=== PATIENT | male | born 1980 | race Caucasian/White ===

== ENCOUNTER 2024-12-10 08:49 | Emergency (ER) | payer SELFPAY ==
[2024-12-10 08:56] VITALS: BP 165/78; PULSE 75; TEMP 36.4; O2SAT 99; BMI 26.6
--- NOTE | 2024-12-10 09:03 | ED_ITS ---
HPI - Abdominal Pain 2 General: Chief Complaint: Abdominal Pain Stated Complaint: allergic reaction Time Seen by Provider: 12/10/24 08:57 Source: patient Mode of arrival: ambulatory Limitations: no limitations History of Present Illness: Patient is a 44-year-old male who presents to ED today with a complaint of severe lower abdominal pain that started yesterday evening. Patient states he is having an allergic reaction to onion or garlic . He reportedly has had similar symptoms in the past. He states he took Benadryl yesterday evening. He states symptoms persisted throughout the night and into today. Upon arrival he arrives significantly uncomfortable and cannot sit still. He is diaphoretic and actively having nausea/dry heaves. No fevers. No changes in bowel movements. He has no urinary symptoms. MD elicited complaint: abdominal pain Onset (ago): day(s) (yesterday evening) Pain Consistency: constant Location: Other (across lower abdomen) Severity: severe Pain scale (0-10): 10 Radiation: none Migration to: no migration Exacerbating factors: other ( onion or garlic ) Relieving factors: nothing Associated Symptoms: Reports GI cramping, nausea and vomiting; Denies change in bowel habits, chills, dysuria, fever(s), hematochezia, hematemesis and melena Related Data Home Medications ?Medication ?Instructions ?Recorded ?Confirmed citalopram 40 mg tablet 40 mg PO QAM 12/10/24 epinephrine 0.3 mg/0.3 mL 0.3 mg IM Q10M PRN Allergic 12/10/24 12/10/24 injection, auto-injector Reaction Allergies Allergy/AdvReac Type Severity Reaction Status Date / Time garlic Allergy Unknown Verified 12/10/24 08:59 onion Allergy Unknown Verified 12/10/24 08:59 shrimp Allergy Unknown Verified 12/10/24 08:59 Review of Systems 2 Const: Denies: fever(s), chills, body aches, fatigue or malaise Card: Denies: chest pain Resp: Denies: dyspnea GI: Reports: abdominal pain, nausea, vomiting and GI cramping; Denies: hematemesis, change in bowel habits, hematochezia or melena : Denies: flank pain, difficulty urinating, dysuria, urinary frequency, urinary urgency or urinary hesitancy Musc: Denies: neck pain, back pain, extremity pain, extremity swelling, joint pain, joint swelling or joint redness Skin/Breast: Denies: rash Neuro: Denies: headache(s), numbness in extremities, weakness in extremities, sensory changes or dizziness Physical Exam 2 Const: COMMON NORMALS: average body habitus, patient oriented x3, no limitations, alert and well nourished GENERAL APPEARANCE: cooperative and in distress (significantly uncomfortable-clutching abdomen; diaphoretic, hyperventilatin) ORIENTATION/CONSCIOUSNESS: Yes awake, Yes oriented to person, Yes oriented to place and Yes oriented to time HENMT: COMMON NORMALS: normocephalic and atraumatic HEAD & SCALP: normal to inspection, normocephalic and atraumatic Eye: COMMON NORMALS: no scleral icterus Neck/C-Spine: GENERAL: Yes normal visual inspection Chest: COMMONS NORMALS: normal inspection of the chest and normal palpation of entire chest wall Resp: COMMON NORMALS: normal respiratory effort and clear to auscultation bilaterally AUSCULTATION: clear to auscultation bilaterally Cardio: COMMON NORMALS: regular rate and regular rhythm RATE: regular rate RHYTHM: regular rhythm GI: INSPECTION: Yes normal to inspection AUSCULTATION: Yes normoactive bowel sounds PALPATION: Yes Tenderness to palpation present (GI) and Yes Guarding due to palpation present (GI) : COMMON NORMALS: Yes no CVA tenderness BLADDER/KIDNEY EXAM: Yes no CVA tenderness Back/Pelvis: COMMON NORMALS: no CVA tenderness, thoracic and lumbar spine normal to inspection and no thoracic nor lumbar tenderness Extremity: GENERAL: Yes normal exam except as noted Neuro: LIT COMA SCALE: document GCS findings Guin coma scale eye opening: Spontaneous Guin coma scale verbal response: Orientated Guin coma scale motor response: Obey commands Guin coma scale total score: 15 COMMON NORMALS: patient oriented x3, moves all extremities, no focal motor deficits and no sensory deficits noted SENSORIUM/ORIENTATION: Yes alert, Yes oriented to person, Yes oriented to place and Yes oriented to time Skin: COMMON NORMALS: no rashes or lesions noted GENERAL SKIN EXAM: no rashes or lesions noted Course 2 Vital Signs: Vital signs: Vital Signs Temperature 97.5 F L 12/10/24 08:56 Pulse Rate 60 12/10/24 10:00 Respiratory Rate 24 H 12/10/24 09:48 Blood Pressure 131/63 12/10/24 10:00 Pulse Oximetry 99 12/10/24 10:00 Oxygen Delivery Me thod Room Air 12/10/24 10:00 MDM - Abdominal Pain Medical Decision Making Patient is a 44-year-old male arriving significantly uncomfortable complaining of abdominal pain and intractable nausea and vomiting. He states this is secondary to an allergic reaction of onion or garlic. Patient was given multiple medications here including Ativan, Haldol, Zofran, Benadryl, and Morphine and is still very uncomfortable and antsy-pacing around his room. He wants to go home and get in a hot bath which he states is the only thing that helps. I did ask him about marijuana use and he does report habitual use. Suspect this could be cannabinoid hyperemesis syndrome. Patient did have a CT scan performed here in the emergency department but he adamantly refuses to wait for these results. He wants to go home. I have spoken to him as well as family in the room. Family does not want him to leave but patient is adamant that he would like to go home. Explained to him that I cannot rule out a surgical abdomen without his CT scan but again he would like to leave-states he'll return if symptoms worsen. Blood work shows slight elevation to his white count at 14- this could be due to his nausea/vomiting. Chemistry is overall unremarkable. Lipase is elevated at 121 without previous for comparison. Could be pancreatitis based on this-I personally did not see any evidence on panreatitis on his CT scan. Medical Records I reviewed the patient's medical records. Lab Data I reviewed the patient's lab results. 12/10/24 09:00 12/10/24 09:00 Labs/Radiology: Radiology Impressions Abdomen/Pelvis CT 12/10/24 09:09 IMPRESSION: Some images degraded by motion. 1. No acute findings in the abdomen or pelvis. 2. Normal appendix. 3. Sigmoid diverticulosis. No evidence of acute diverticulitis. Laboratory Results WBC 14.02 10^3/uL (3.29-11.43) H 12/10/24 09:00 RBC 5.46 10^6/uL (3.85-5.65) 12/10/24 09:00 Hgb 16.10 g/dL (11.27-16.99) 12/10/24 09:00 Hct 48.7 % (37-53) 12/10/24 09:00 MCV 89.2 fl (82-101) 12/10/24 09:00 MCH 29.5 pg (27-33) 12/10/24 09:00 MCHC 33.1 g/dL (30-55) 12/10/24 09:00 RDW 13.0 % (12.1-15.1) 12/10/24 09:00 Plt Count 291 10^3/cmm (157-399) 12/10/24 09:00 MPV 8.4 fL (7.4-10.4) 12/10/24 09:00 Neut % (Auto) 58.6 % 12/10/24 09:00 Lymph % (Auto) 27.3 % 12/10/24 09:00 [place] % (Auto) 7.9 % 12/10/24 09:00 Eos % (Auto) 4.5 % 12/10/24 09:00 Baso % (Auto) 0.9 % 12/10/24 09:00 Neut # (Auto) 8.22 10^3/uL (1.8-7.7) H 12/10/24 09:00 Lymph # (Auto) 3.8 10^3/uL (0.8-4.8) 12/10/24 09:00 [place] # (Auto) 1.1 10^3/uL (0.2-0.9) H 12/10/24 09:00 Eos # (Auto) 0.6 10^3/uL (0.0-0.8) 12/10/24 09:00 Baso # (Auto) 0.1 10^3/uL (0.0-0.1) 12/10/24 09:00 Nucleated RBC % (auto) 0 % 12/10/24 09:00 Nucleated RBCs # 0.0 /100WBC 12/10/24 09:00 Sodium 141 mmol/L (136-145) 12/10/24 09:00 Potassium 4.0 mmol/L (3.5-5.1) 12/10/24 09:00 Chloride 104 mmol/L (98-107) 12/10/24 09:00 Carbon Dioxide 19 mmol/L (22-29) L 12/10/24 09:00 Anion Gap 22.0 (5-19) H 12/10/24 09:00 BUN 15 mg/dL (6-20) 12/10/24 09:00 Creatinine 1.0 mg/dL (0.7-1.2) 12/10/24 09:00 GFR Calculation 81.6 mL/min (90-130) L 12/10/24 09:00 Glucose 109 mg/dL (65-115) 12/10/24 09:00 Calculated Osmolality 293 mOsm/kg (285-295) 12/10/24 09:00 Calcium 9.4 mg/dL (8.5-10.5) 12/10/24 09:00 Total Bilirubin 0.3 mg/dL (0.15-1.2) 12/10/24 09:00 AST 22 U/L (0-40) 12/10/24 09:00 ALT 20 U/L (0-41) 12/10/24 09:00 Alkaline Phosphatase 72 U/L (40-130) 12/10/24 09:00 Total Protein 8.0 g/dL (6.6-8.7) 12/10/24 09:00 Albumin 4.5 g/dL (3.5-5.2) 12/10/24 09:00 Globulin 3.5 g/dL (1.3-4.6) 12/10/24 09:00 Lipase 121 U/L (13-60) H 12/10/24 09:00 XR interpretation done by ED provider, pending radiology final review ED provider radiology interpretation(s): CT scan not read before patient left AMA Discharge Plan Discharge Patient Disposition: Left Against Medical Advice Clinical Impression: Abdominal pain Condition: Stable Prescriptions: No Action citalopram 40 mg tablet 40 mg PO QAM epinephrine [Epi E-Z Pen] 0.3 mg/0.3 mL Auto-Injector 0.3 mg IM Q10M PRN (Reason: Allergic Reaction) Rx Instructions: for 2 doses Patient Instructions: Abdominal Pain (ED) Print Language: Vietnamese Coding Level of Care Code ED Security Team Lead for Olivia Goodwin
[2024-12-10] MEDS: LORazepam 1 MG/0.5 ML injection IVP (09:09)
--- NOTE | 2024-12-10 09:09 | CT_ITS ---
WS: [id number] CT ABDOMEN PELVIS TECHNIQUE: Contrast-enhanced CT of the abdomen and pelvis with coronal and sagittal reformatted images. CLINICAL INFORMATION: lower abdominal pain COMPARISON: None. DLP: 676.[address] scans at [facility] use at least one of these dose optimization techniques: automated exposure control; mA and/or kV adjustment per patient size (includes targeted exams where dose is matched to clinical indication); or iterative reconstruction. FINDINGS: Some images degraded by patient motion Normal appendix in the RIGHT lower quadrant. Sigmoid diverticulosis. No evidence of acute diverticulitis. No evidence of high-grade small or large bowel obstruction. Tiny esophageal hiatal hernia. Normal liver. Normal gallbladder. Portal vein and splenic vein are patent. Normal pancreatic parenchymal e nhancement. Normal spleen. Lung bases are well aerated. Adrenal glands are normal. Normal caliber abdominal aorta. Celiac and SMA are patent. Normal renal parenchymal enhancement. No hydronephrosis. Small fat- containing LEFT inguinal hernia. Small fat-containing umbilical hernia. Disc space narrowing L5-S1. No other acute findings. CT/CT abdomen pelvis w con* [id number] IMPRESSION: Some images degraded by motion. 1. No acute findings in the abdomen or pelvis. 2. Normal appendix. 3. Sigmoid diverticulosis. No evidence of acute diverticulitis.
[2024-12-10] MEDS: ondansetron 2 mg/ML SDV 2 mL 4 MG IVP (09:10)
[2024-12-10 09:11] LABS: Hematocrit 48.7 % (37-53); Hemoglobin 16.10 g/dL (11.27-16.99); Mean Corpuscular HGB Conc 33.1 g/dL (30-55); Mean Corpuscular Hemoglobin 29.5 pg (27-33); Mean Corpuscular Volume 89.2 fl (82-101); Nucleated Red Blood Cells % 0 %; Platelet Count 291 10^3/cmm (157-399); Red Blood Count 5.46 10^6/uL (3.85-5.65); White Blood Count 14.02 10^3/uL (3.29-11.43)
[2024-12-10] MEDS: haloperidol inj 5 mg/mL INJ 1 mL 2.5 MG IVP (09:12)
[2024-12-10 09:21] LABS: Alanine Aminotransferase 20 U/L (0-41); Albumin Level 4.5 g/dL (3.5-5.2); Alkaline Phosphatase 72 U/L (40-130); Anion Gap 22.0 (5-19); Aspartate Amino Transferase 22 U/L (0-40); Blood Urea Nitrogen 15 mg/dL (6-20); Calcium 9.4 mg/dL (8.5-10.5); Carbon Dioxide 19 mmol/L (22-29); Chloride 104 mmol/L (98-107); Creatinine Clr Calc Pharmacy 101.1478; Globulin 3.5 g/dL (1.3-4.6); Glucose 109 mg/dL (65-115); Lipase 121 U/L (13-60); Osmolality Calculated 293 mOsm/kg (285-295); Potassium 4.0 mmol/L (3.5-5.1); Sodium 141 mmol/L (136-145); Total Protein 8.0 g/dL (6.6-8.7)
[2024-12-10] MEDS: iohexol 350 mg/mL 500 mL Btl (per mL) IV (09:30)
--- NOTE | 2024-12-10 09:31 | PC.NURSE ---
PT REFUSING TO LAY IN BED AND IS REQUESTING TO STAND UP.
--- NOTE | 2024-12-10 09:43 | PC.NURSE ---
UNABLE TO OBTAIN CONTINUOUS VITAL SIGNS DUE TO PT MOVEMENT AND REFUSING TO STAY IN BED.
[2024-12-10] MEDS: diphenhydrAMINE 50 mg/mL SDV 1mL IVP (09:47)
[2024-12-10 09:48] VITALS: RESP 24; O2SAT 99
[2024-12-10] MEDS: morphine 4 mg/mL SDV 1 mL IVP (09:48)
[2024-12-10 10:00] VITALS: BP 131/63; PULSE 60; O2SAT 99
--- NOTE | 2024-12-10 10:10 | PC.NURSE ---
THIS NURSE WENT TO ROUND ON PT. PT STATED HE WANTED TO GO HOME. THIS NURSE EDUCATED PT ON THE NEED TO STAY, ESPECIALLY IF HE IS IN THAT MUCH PAIN. PT VISTORS ALSO ATTEMPTED TO EDUCATE PT ON THE NEED TO STAY. PT STILL CONTINUED TO STATE I JUST WANT TO GO HOME. I NEED MY BATHTUB. JUST LET ME GO HOME. PT WAS EDUCATED AGAIN BY THIS NURSE ON THE NEED TO STAY AND PT STILL CONTINUED TO REQUEST TO GO HOME. PROVIDER NOTIFIED.
== END 2024-12-10 10:17 | disposition left against medical advice (07) ==
PROVIDERS: Emergency Provider Physician Assistant
DX: R10.30 Lower abdominal pain, unspecified (principal)
CPT/HCPCS: 36415; 74177; 80053; 83690; 85025; 96361; 96374; 96375; 99285; J1200; J1630; J2060; J2270; J2405; J7030